=== PATIENT | female | born 1980 | race Caucasian/White ===

== ENCOUNTER 2020-11-26 18:08 | Emergency (ER) | payer SELFPAY ==
[2020-11-26 18:09] VITALS: BP 126/89; PULSE 91; RESP 20; TEMP 36.5; O2SAT 100; BMI 40.4
--- NOTE | 2020-11-26 18:21 | ED.DCSUM_ITS ---
History of Present Illness Chief Complaint: Abd Pain Informant: Patient Onset: Hours - Onset 2 hours ago Context: Sudden Onset Timing: Continuous, Waxes and wanes Quality: Pain Location: Right upper quadrant Current Severity: Moderate Maximum Severity: Severe Worsened by: Recent intolerance to greasy and fried foods Relieved by: Nothing Associated Symptoms: Nausea Narrative: Patient is a 40-year-old female who presents with right upper quadrant pain that started several hours after having chicken nuggets and whipped Yoplait. She reports recent intolerance to greasy and fried foods. There is a significant family history for cholelithiasis/cholecystitis. She does report nausea. She denies vomiting. She has history of irritable bowel syndrome with intermittent episodes of constipation and diarrhea. She denies blood or mucus in her stool. She denies fever or chills. She denies respiratory complaints. She denies back or flank pain. He has no other complaints. Prior similar symptoms: Yes Recent Illness/Hospitalization: No - Past Medical History (1) No significant past medical history Status: Acute Past Medical History - Allergies and Home Meds Allergies/Adverse Reactions: Allergies prednisone Allergy (Verified 11/26/20 18:12) [facility] Primary Care Physician: Dennis Celis DO [Primary Care Provider] - Prior records reviewed: Yes - Surgery left x2 and foot surgery Surgical History: noncontributory Lives: With Family Smoking Status: Unknown if ever smoked Alcohol: None Drugs: None Review of Systems General: Denies: Chills, Fever, Malaise, Subjective, Sweats Eyes: Denies: Visual changes - bilaterally, Blurred Vision - bilaterally ENT: Denies: Bilateral ear pain, Rhinorrhea, Sore throat Cardiovascular: Denies: Chest pain, Palpitations Respiratory: Denies: Dyspnea, Cough, Dyspnea on exertion Gastrointestinal: Reports: Abdominal pain, Nausea. Denies: Vomiting, Diarrhea, Constipation, Melena, Hematochezia Genitourinary: Denies: Dysuria, Hematuria, Frequency Musculoskeletal: Denies: Myalgias, Arthralgias, Neck pain, Back pain, Swelling, Extremity Pain, -, - Skin: Denies: Rash, Abrasions, Wounds Neurological: Denies: Parasthesia, Numbness Endocrine: Denies: Polyuria, Polydipsia Hematologic: Denies: Easy bruising, Easy bleeding Physical Exam Vital Signs/Narrative: Vital Signs Temp Pulse Resp BP Pulse Ox 02/14/21 18:09 97.7 F L 91 20 H 126/89 H 100 Inital Vital Signs reviewed: Yes General: Well nourished, Well developed, Obese, Acute Distress. Negative for: Cachectic, Contractures Head: Normocephalic, Atraumatic Eyes: Perrl, EOMI. Negative for: Pale conjunctiva, Scleral icterus ENT: No rhinorrhea, Dry mucous membranes Neck: Supple, Nontender, No lymphadenopathy, No JVD Cardiovascular: Regular rate, Regular rhythm, No murmurs, Normal S1, Normal S2 Respiratory: No distress, CTA bilaterally, Chest nontender Abdomen: Soft, Nondistended, No masses, Tender, Guarding, Hypoactive bowel sounds, Wilder's sign. Negative for: Nontender, Normal bowel sounds, Rebound tenderness, Hyperactive bowel sounds, Hepatomegaly, Splenomegaly, Mass Rectal: Deferred Back: Nontender, Normal Inspection Extremities: Nontender, No edema Skin: Normal color, No rash Neurological: Alert, Oriented x3, Cranial nerves II-XII grossly intact, Normal Strength, Normal Sensation, Normal Gait Psychological: Normal Mood Diagnostic/Tx/Re-eval Laboratory Results 11/26/20 11/26/20 18:35 18:35 WBC 10.4 RBC 4.66 Hgb 12.8 Hct 39.8 MCV 85.4 MCH 27.5 MCHC 32.2 RDW Std Deviation 42.0 RDW Coeff of Deep 13.4 Plt Count 302 MPV 10.1 Immature Gran % (Auto) 0.500 Neut % (Auto) 77.4 H Lymph % (Auto) 15.8 L [place] % (Auto) 5.0 Eos % (Auto) 1.0 Baso % (Auto) 0.3 Absolute Neuts (auto) 8.1 H Absolute Lymphs (auto) 1.64 Nucleated RBC % 0 Sodium 139 Potassium 3.2 L Chloride 104 Carbon Dioxide 27.0 Anion Gap 8 BUN 11 Creatinine 0.95 Estim Creat Clear Calc 66.42 Est GFR (MDRD) Af Amer 84 Est GFR (MDRD) Non-Af 70 BUN/Creatinine Ratio 11.5 Glucose 108 H Calcium 8.8 Total Bilirubin 0.30 Direct Bilirubin < 0.05 AST 19 ALT 24 Alkaline Phosphatase 86 Total Protein 7.3 Albumin 3.7 Globulin 3.6 Lipase 69 L CBC is unremarkable. Hepatic profile and lipase are unremarkable. Will reassess for pain management. If pain is under control will discharge with appropriate home-going instructions and referral to surgeon information technology security analyst if she has not seen a general surgeon in the past. - Medical Decision Making Recent intolerance to greasy and fried foods right upper quadrant pain with clinical Wilder sign suspect patient has cholelithiasis with biliary colic versus cholecystitis. Since she ate approximately 4 hours ago and had fatty greasy food ultrasound would most likely be nondiagnostic. She was medicated with IV Zofran and morphine. [facility] blood work was obtained. Will reassess after results have come back to determine if patient will need inpatient management with ultrasound in the morning versus stat ultrasound. Went to reassess patient at 1850. She informed that she received her medications 2 to 3 months ago. There was difficulty in establishing IV access. Patient was assessed at 1922. She appears pale. She is complaining of nausea and significant pain in the right upper quadrant. 5 mg of Reglan was ordered and 4 mg of morphine was ordered. Will reassess in 30 to 60 minutes. If she still appears uncomfortable will call hospitalist for observation status with ultrasound in the morning. Patient was reassessed at 2009. She looks much better and feels much better. Plan outpatient ultrasound. Will speak with Dr. Kim Russell who is on for surgery for follow-up. ED Disposition - Plan for ED Patient: Disposition: Home or Assisted Living Diagnosis: Right upper quadrant pain Instructions: ED Abdominal Pain Unkn Cause Fem Prescriptions: Hydrocodone Bitart/Apap 5-325 [Albert Lea 5MG-325MG] 1 tab PO Q6H PRN PRN 3 Days #10 tab PRN Reason: Pain Prescription Printed Ondansetron [Zofran Odt] 4 mg PO Q8H PRN PRN #10 tab PRN Reason: Nausea Prescription Printed Referrals: Dennis Celis DO [Primary Care Provider] - Kim Russell MD [STAFF PHYSICIAN] - 11/28/20 8:30 am Additional Instructions: Nothing to eat after midnight. Call radiology department in the morning to schedule ultrasound for tomorrow. You have an appointment to see Dr. Kim Russell on Friday at 8:30 AM.
[2020-11-26] MEDS: 0.9% Normal Saline 1,000 ML 125 ML IV (18:43)
[2020-11-26] MEDS: Ondansetron 4 MG/2 ML Vial IV (18:43)
[2020-11-26] MEDS: Morphine 4 MG/ML Syringe IV ×2 (18:43→19:27)
[2020-11-26] MEDS: Ketorolac 15 MG/ML Vial IV (18:43)
[2020-11-26 18:48] LABS: Absolute Lymphocyte Count 1.64 X10^3/uL (0.83-4.51); Absolute Neutrophil Count 8.1 X10^3/uL (2.0-7.7); Basophil# 0.03 X10^3/uL; Basophil% 0.3 % (0-1); Hematocrit 39.8 % (37-47); Hemoglobin 12.8 g/dL (12.0-15.0); Lymphocyte # 1.64 X10^3/ul (4.0); Lymphocyte % 15.8 % (19-41); Mean Corp Hgb Conc 32.2 g/dL (32-36); Mean Corpuscular Hgb 27.5 pg (27.0-32.0); Mean Corpuscular Volume 85.4 fL (81-99); Mean Platelet Vol. 10.1 fl (6.2-12.0); Monocyte# 0.52 X10^3/uL; NRBC Flagged by Analyzer 0 % (0-5); Neutrophil # 8.05 X10^3/uL (2.7-7.7); Neutrophil % 77.4 % (47-70); Platelet Count 302 K/mm3 (150-450); RBC Distribution Width CV 13.4 % (11.6-14.6); Red Blood Count 4.66 M/mm3 (4.2-5.4); White Blood Count 10.4 K/mm3 (4.4-11.0)
[2020-11-26 19:06] LABS: AST(SGOT) 19 U/L (15-37); Alanine Aminotransfer ALT/SGPT 24 U/L (13-56); Albumin, Serum 3.7 g/dL (3.2-5.0); Alkaline Phosphatase 86 U/L (45-117); Anion Gap 8 (5-15); BUN 11 mg/dL (7-18); BUN/Creat Ratio 11.5 RATIO (10-20); Bilirubin, Direct < 0.05 mg/dL (0.00-0.30); Calcium,Total 8.8 mg/dL (8.5-10.1); Chloride 104 mmol/L (98-107); Creatinine, Serum 0.95 mg/dL (0.55-1.02); EST Glomerular Filtration Rate 70 mL/min (>60); Est Glom Filt Rate - Afr Amer 84 mL/min (>60); Estimated Creatinine Clearance 66.42 ml/min; Globulin 3.6 g/dL (2.2-4.2); Glucose 108 mg/dL (74-106); Lipase 69 U/L (73-393); Potassium 3.2 mmol/L (3.5-5.1); Protein, Total 7.3 g/dL (6.4-8.2); Sodium Level 139 mmol/L (136-145)
[2020-11-26] MEDS: Metoclopramide 10 MG/2 ML Vial 5 MG IV (19:27)
[2020-11-26 19:29] VITALS: BP 119/83; PULSE 66; RESP 18; O2SAT 100
[2020-11-26 20:35] VITALS: BP 118/71; PULSE 90; RESP 18; O2SAT 99
== END 2020-11-26 20:50 | disposition home or self-care (01) ==
PROVIDERS: Emergency Provider Emergency Medicine; PCP Family Medicine
DX: R10.11 Right upper quadrant pain (principal); K58.2 Mixed irritable bowel syndrome; E66.9 Obesity, unspecified; Z83.79 Family history of other diseases of the digestive system
CPT/HCPCS: 80048; 80076; 83690; 85025; 96361; 96374; 96375; 96376; 99284; J7030; A4216; J2405